=== PATIENT | male | born 1980 | race Caucasian/White ===

== ENCOUNTER 2017-09-20 20:10 | Inpatient (IN) | payer MEDICAID ==
[~2017-09-20] VITALS: Ht 170.2 cm; Wt 84.0 kg
[2017-09-20] MEDS ORDERED: normal saline 1000ML IV soln IVB ONE (20:25)
[2017-09-20] MEDS ORDERED: vancomycin/NS 1 GM ADD-VANTAGE 250 ML IV ONE (20:25)
[2017-09-20 20:55] LABS: BASOPHILS % (AUTO) 0.1 % (0-1); EOSINOPHILS % (AUTO) 0 % (0-6); HEMATOCRIT 42.7 % (42.0-52.0); HEMOGLOBIN 14.3 g/dl (14.0-17.9); LYMPHOCYTES # (AUTO) 1.7 X10'3 (1.1-4.8); LYMPHOCYTES % (AUTO) 10.5 % (21-51); MEAN CORPUSCULAR HEMOGLOBIN 30.2 PG (27.0-31.0); MEAN CORPUSCULAR HGB CONC 33.5 % (33.0-36.5); MEAN PLATELET VOLUME 6.6 FL (7.4-10.4); NEUTROPHILS # (AUTO) 13.2 X10'3 (1.8-7.7); NEUTROPHILS % (AUTO) 83.4 % (42-75); PLATELET COUNT 407 X10'3 (140-440); RED BLOOD COUNT 4.75 X10'6 (4.70-6.10); RED CELL DISTRIBUTION WIDTH 16.3 % (11.5-14.5); WHITE BLOOD COUNT 15.9 X10'3 (4.5-11.0)
[2017-09-20] MEDS ORDERED: temazepam 15mg capsule PO PRN (21:00)
[2017-09-20 21:09] LABS: ALANINE AMINOTRANSFERASE 759 U/L (12-78); ALBUMIN 3.1 G/DL (3.4-5.0); ALBUMIN/GLOBULIN RATIO 0.8 (1.1-1.5); ALKALINE PHOSPHATASE 204 IU/L (46-116); ANION GAP 7 (8-16); ASPARTATE AMINO TRANSFERASE 313 U/L (10-37); BILIRUBIN,TOTAL 1.8 MG/DL (0.1-1.0); BLOOD UREA NITROGEN 17 MG/DL (7-18); BUN/CREATININE RATIO 16.5 (5.4-32.0); CALCIUM 8.6 MG/DL (8.5-10.1); CHLORIDE 98 MMOL/L (99-107); CREATININE 1.03 MG/DL (0.60-1.10); GLUCOSE 159 MG/DL (70-104); POTASSIUM 3.8 MMOL/L (3.5-5.1); SODIUM 135 MMOL/L (135-145); TOTAL CARBON DIOXIDE 29.9 MMOL/L (24-32); TOTAL PROTEIN 6.9 G/DL (6.4-8.2); eGFR 80 ML/MIN
[2017-09-20] MEDS ORDERED: normal saline 1000ML IV soln IV ONE (21:45)
[2017-09-20 22:58] LABS: ANISOCYTOSIS 1+; PLATELET ESTIMATE NORMAL; TOTAL CELLS COUNTED 100
[2017-09-20] MEDS ORDERED: diphenhydrAMINE 50 mg/ml inj IV PRN (23:20)
[2017-09-20] MEDS ORDERED: diphenhydrAMINE 25mg capsule PO PRN (23:20)
[2017-09-20] MEDS ORDERED: magnesium hydroxide 30ml (MOM) UD suspension PO PRN (23:20)
[2017-09-20] MEDS ORDERED: bisacodyl 10mg suppository rectal RC PRN (23:20)
[2017-09-20] MEDS ORDERED: mag hydrox/Alum hydrox/simeth 30ml oral suspension PO PRN (23:20)
[2017-09-20] MEDS ORDERED: acetaminophen 325mg tablet PO PRN ×2 (23:20)
[2017-09-20] MEDS ORDERED: acetaminophen 650mg rectal suppository RC PRN (23:20)
[2017-09-20] MEDS ORDERED: ondansetron/PF 4mg/2ml inj IV PRN (23:20)
[2017-09-20] MEDS ORDERED: metoclopramide 5 mg/ml inj IV PRN (23:20)
[2017-09-20] MEDS ORDERED: HYDROmorphone 1 mg/ml syringe IV PRN ×2 (23:20)
[2017-09-20] MEDS ORDERED: HYDROcodone/acetaminophen 5mg/325mg tablet PO PRN (23:20)
[2017-09-20 23:48] LABS: MAGNESIUM 1.8 MG/DL (1.5-2.4)
[2017-09-20] MEDS: normal saline 1000ml 1,000 ML IV SCH (23:56)
[2017-09-21] MEDS: piperacillin/tazo 4.5gm/100ml 100 ML IV SCH ×3 (00:21→15:55)
[2017-09-21 01:05] VITALS: BP 100/59
[2017-09-21] MEDS: heparin, porcine 5000 units/ml vial SQ SCH ×3 (01:58→15:56)
[2017-09-21 05:26] LABS: BASOPHILS % (AUTO) 0.3 % (0-1); EOSINOPHILS # (AUTO) 0.3 X10'3 (0-0.9); EOSINOPHILS % (AUTO) 2.4 % (0-6); HEMATOCRIT 37.8 % (42.0-52.0); HEMOGLOBIN 12.5 g/dl (14.0-17.9); LYMPHOCYTES # (AUTO) 2.2 X10'3 (1.1-4.8); LYMPHOCYTES % (AUTO) 18.5 % (21-51); MEAN CORPUSCULAR HGB CONC 33.1 % (33.0-36.5); MEAN CORPUSCULAR VOLUME 90.4 FL (78-98); MONOCYTES % (AUTO) 8.4 % (2-12); NEUTROPHILS # (AUTO) 8.3 X10'3 (1.8-7.7); NEUTROPHILS % (AUTO) 70.4 % (42-75); PLATELET COUNT 353 X10'3 (140-440); RED BLOOD COUNT 4.18 X10'6 (4.70-6.10); RED CELL DISTRIBUTION WIDTH 16.2 % (11.5-14.5); WHITE BLOOD COUNT 11.8 X10'3 (4.5-11.0)
[2017-09-21 05:52] LABS: ALANINE AMINOTRANSFERASE 559 U/L (12-78); ALBUMIN 2.5 G/DL (3.4-5.0); ALBUMIN/GLOBULIN RATIO 0.8 (1.1-1.5); ALKALINE PHOSPHATASE 166 IU/L (46-116); ANION GAP 8 (8-16); ASPARTATE AMINO TRANSFERASE 212 U/L (10-37); BILIRUBIN,TOTAL 1.6 MG/DL (0.1-1.0); BLOOD UREA NITROGEN 13 MG/DL (7-18); BUN/CREATININE RATIO 14.3 (5.4-32.0); CHLORIDE 103 MMOL/L (99-107); CREATININE 0.91 MG/DL (0.60-1.10); GLUCOSE 126 MG/DL (70-104); POTASSIUM 3.7 MMOL/L (3.5-5.1); SODIUM 137 MMOL/L (135-145); TOTAL CARBON DIOXIDE 26.2 MMOL/L (24-32); TOTAL PROTEIN 5.8 G/DL (6.4-8.2); eGFR > 90 ML/MIN
[2017-09-21 06:00] VITALS: BP 160/90
[2017-09-21] MEDS ORDERED: pneumococcal 23-VAL P-sac vacc 25 mcg/0.5ml vial IMVAC ONE (06:15)
[2017-09-21] MEDS ORDERED: FLU VACC QS2017-18 36MOS UP/PF 60 MCG/0.5 ML SYRINGE IMVAC ONE (06:15)
[2017-09-21] MEDS: nicotine 21mg patch - 24 hr TD SCH (07:05)
[2017-09-21] MEDS: docusate sod 100mg capsule PO SCH ×2 (07:05→20:05)
[2017-09-21] MEDS: HYDROcodone/acetaminophen 10/325mg tab PO PRN ×4 (07:05→20:10)
[2017-09-21] MEDS: pantoprazole 40mg Tablet.DR PO SCH (07:05)
[2017-09-21] MEDS: naproxen 500mg tablet PO SCH ×2 (07:05→20:04)
[2017-09-21] MEDS ORDERED: vancomycin/NS 1 GM ADD-VANTAGE 250 ML IV SCH (09:00)
[2017-09-21] MEDS: normal saline 1000ml 1,000 ML IV SCH ×2 (09:20→20:05)
[2017-09-21 10:00] VITALS: BP 122/58
[2017-09-21 17:00] VITALS: BP 103/64
[2017-09-21] MEDS: lactobacillus rhamnosus 10,000 MMU CELLS/CAPSULE PO SCH (17:29)
[2017-09-21] MEDS: vancomycin inj 1,250 MG in normal saline 250ml IV soln 250 ML IV SCH (17:29)
[2017-09-21 20:36] LABS: CLARITY,URINE CLEAR (Clear); COLOR,URINE AMBER (Yellow); GLUCOSE, URINE NEGATIVE (Neg); KETONES,URINE NEGATIVE (Neg); LEUKOCYTE ESTERASE ,URINE NEGATIVE (Neg); NITRITES, URINE NEGATIVE (Neg); OCCULT BLOOD,URINE NEGATIVE (Neg); PROTEIN,URINE NEGATIVE (Neg); UROBILINOGEN,URINE >=8.0 E.U/dL (0.2-1.0)
[2017-09-21 20:38] LABS: UA COLLECTION TYPE VOIDED
[2017-09-21 20:42] LABS: URINE AMPHETAMINE SCREEN POSITIVE (Neg); URINE BARBITUATE SCREEN NEGATIVE (Neg); URINE BENZODIAZEPINES SCREEN NEGATIVE (Neg); URINE CANNABINOID SCREEN NEGATIVE (Neg); URINE COCAINE SCREEN NEGATIVE (Neg); URINE METHADONE SCREEN NEGATIVE (Neg); URINE OPIATE SCREEN POSITIVE (Neg); URINE PHENCYCLIDINE SCREEN NEGATIVE (Neg)
[2017-09-21] MEDS: ALPRAZolam 0.25mg tablet PO PRN (21:52)
[2017-09-21 22:00] VITALS: BP 118/71
[2017-09-22] MEDS: piperacillin/tazo 4.5gm/100ml 100 ML IV SCH ×3 (00:18→16:04)
[2017-09-22] MEDS: HYDROcodone/acetaminophen 10/325mg tab PO PRN (00:18)
[2017-09-22] MEDS: heparin, porcine 5000 units/ml vial SQ SCH ×3 (00:18→16:09)
[2017-09-22] MEDS: vancomycin inj 1,250 MG in normal saline 250ml IV soln 250 ML IV SCH ×3 (00:49→17:33)
[2017-09-22 05:00] VITALS: BP 113/68
[2017-09-22] MEDS: normal saline 1000ml 1,000 ML IV SCH ×3 (05:20→20:11)
[2017-09-22] MEDS: pantoprazole 40mg Tablet.DR PO SCH (07:30)
[2017-09-22] MEDS: lactobacillus rhamnosus 10,000 MMU CELLS/CAPSULE PO SCH ×2 (07:30→17:40)
[2017-09-22] MEDS: naproxen 500mg tablet PO SCH ×2 (08:00→20:10)
[2017-09-22] MEDS: docusate sod 100mg capsule PO SCH ×2 (08:00→20:10)
[2017-09-22] MEDS: nicotine 21mg patch - 24 hr TD SCH (08:23)
[2017-09-22 08:30] LABS: BASOPHILS % (AUTO) 0.4 % (0-1); EOSINOPHILS # (AUTO) 0.3 X10'3 (0-0.9); EOSINOPHILS % (AUTO) 3.4 % (0-6); HEMATOCRIT 38.3 % (42.0-52.0); HEMOGLOBIN 12.6 g/dl (14.0-17.9); LYMPHOCYTES # (AUTO) 1.5 X10'3 (1.1-4.8); LYMPHOCYTES % (AUTO) 20.4 % (21-51); MEAN CORPUSCULAR HEMOGLOBIN 30.4 PG (27.0-31.0); MEAN CORPUSCULAR HGB CONC 32.9 % (33.0-36.5); MEAN CORPUSCULAR VOLUME 92.4 FL (78-98); MEAN PLATELET VOLUME 7.3 FL (7.4-10.4); MONOCYTES # (AUTO) 0.7 X10'3 (0-0.9); MONOCYTES % (AUTO) 9.6 % (2-12); NEUTROPHILS # (AUTO) 4.9 X10'3 (1.8-7.7); NEUTROPHILS % (AUTO) 66.2 % (42-75); PLATELET COUNT 308 X10'3 (140-440); RED BLOOD COUNT 4.15 X10'6 (4.70-6.10); RED CELL DISTRIBUTION WIDTH 16.8 % (11.5-14.5); WHITE BLOOD COUNT 7.4 X10'3 (4.5-11.0)
[2017-09-22] MEDS ORDERED: iohexol 300mg/ml 100ml inj. ONE (08:33)
[2017-09-22 08:35] LABS: ALANINE AMINOTRANSFERASE 508 U/L (12-78); ALBUMIN 2.4 G/DL (3.4-5.0); ALBUMIN/GLOBULIN RATIO 0.7 (1.1-1.5); ALKALINE PHOSPHATASE 145 IU/L (46-116); ANION GAP 5 (8-16); ASPARTATE AMINO TRANSFERASE 254 U/L (10-37); BILIRUBIN,TOTAL 1.7 MG/DL (0.1-1.0); BLOOD UREA NITROGEN 13 MG/DL (7-18); BUN/CREATININE RATIO 14.9 (5.4-32.0); CALCIUM 8.2 MG/DL (8.5-10.1); CHLORIDE 109 MMOL/L (99-107); CREATININE 0.87 MG/DL (0.60-1.10); GLUCOSE 89 MG/DL (70-104); POTASSIUM 4.4 MMOL/L (3.5-5.1); SODIUM 141 MMOL/L (135-145); TOTAL CARBON DIOXIDE 27.3 MMOL/L (24-32); TOTAL PROTEIN 5.9 G/DL (6.4-8.2); eGFR > 90 ML/MIN
[2017-09-22] MEDS ORDERED: ALPR2TAB2 PO (09:43)
[2017-09-22 10:00] VITALS: BP 119/79
[2017-09-22] MEDS: ALPRAZolam 0.25mg tablet PO PRN (16:07)
[2017-09-22] MEDS ORDERED: VANCOMYCIN LEVEL IV NR (16:30)
[2017-09-22 18:00] VITALS: BP 119/73
[2017-09-22] MEDS: mineral oil/petrolatum, white cream 113gm jar TP SCH (20:45)
[2017-09-22 22:00] VITALS: BP 92/54
[2017-09-23] MEDS: piperacillin/tazo 4.5gm/100ml 100 ML IV SCH ×3 (00:15→15:39)
[2017-09-23] MEDS: heparin, porcine 5000 units/ml vial SQ SCH ×3 (00:16→15:39)
[2017-09-23] MEDS: vancomycin inj 1,250 MG in normal saline 250ml IV soln 250 ML IV SCH (01:52)
[2017-09-23 05:00] VITALS: BP 92/44
[2017-09-23 06:19] LABS: HBSAG SCREEN Negative (Negative); HEP A AB, IGM Negative (Negative); HEP B CORE AB, IGM Negative (Negative); HEPATITIS C ANTIBODY >11.0 s/co ratio (0.0-0.9)
[2017-09-23 07:26] LABS: BASOPHILS % (AUTO) 0 % (0-1); EOSINOPHILS # (AUTO) 0.2 X10'3 (0-0.9); EOSINOPHILS % (AUTO) 2.9 % (0-6); HEMATOCRIT 38.1 % (42.0-52.0); HEMOGLOBIN 12.5 g/dl (14.0-17.9); LYMPHOCYTES # (AUTO) 1.4 X10'3 (1.1-4.8); LYMPHOCYTES % (AUTO) 23.7 % (21-51); MEAN CORPUSCULAR HEMOGLOBIN 30.2 PG (27.0-31.0); MEAN CORPUSCULAR HGB CONC 32.8 % (33.0-36.5); MEAN CORPUSCULAR VOLUME 92.1 FL (78-98); MEAN PLATELET VOLUME 7.1 FL (7.4-10.4); MONOCYTES # (AUTO) 0.6 X10'3 (0-0.9); NEUTROPHILS # (AUTO) 3.7 X10'3 (1.8-7.7); NEUTROPHILS % (AUTO) 63.4 % (42-75); PLATELET COUNT 312 X10'3 (140-440); RED BLOOD COUNT 4.14 X10'6 (4.70-6.10); RED CELL DISTRIBUTION WIDTH 17.2 % (11.5-14.5); WHITE BLOOD COUNT 5.8 X10'3 (4.5-11.0)
[2017-09-23] MEDS: naproxen 500mg tablet PO SCH ×2 (07:38→21:21)
[2017-09-23] MEDS: HYDROcodone/acetaminophen 10/325mg tab PO PRN ×2 (07:38→15:40)
[2017-09-23] MEDS: nicotine 21mg patch - 24 hr TD SCH (07:39)
[2017-09-23] MEDS: docusate sod 100mg capsule PO SCH ×2 (07:39→21:21)
[2017-09-23] MEDS: lactobacillus rhamnosus 10,000 MMU CELLS/CAPSULE PO SCH ×2 (07:39→16:47)
[2017-09-23] MEDS: pantoprazole 40mg Tablet.DR PO SCH (07:39)
[2017-09-23] MEDS: mineral oil/petrolatum, white cream 113gm jar TP SCH ×2 (07:39→20:00)
[2017-09-23 07:46] LABS: ALANINE AMINOTRANSFERASE 514 U/L (12-78); ALBUMIN 2.2 G/DL (3.4-5.0); ALBUMIN/GLOBULIN RATIO 0.6 (1.1-1.5); ALKALINE PHOSPHATASE 185 IU/L (46-116); ANION GAP 6 (8-16); ASPARTATE AMINO TRANSFERASE 312 U/L (10-37); BILIRUBIN,TOTAL 1.6 MG/DL (0.1-1.0); BLOOD UREA NITROGEN 9 MG/DL (7-18); BUN/CREATININE RATIO 10.3 (5.4-32.0); CALCIUM 8.2 MG/DL (8.5-10.1); CHLORIDE 110 MMOL/L (99-107); CREATININE 0.87 MG/DL (0.60-1.10); GLUCOSE 104 MG/DL (70-104); POTASSIUM 4.3 MMOL/L (3.5-5.1); SODIUM 142 MMOL/L (135-145); TOTAL CARBON DIOXIDE 26.3 MMOL/L (24-32); TOTAL PROTEIN 5.9 G/DL (6.4-8.2); eGFR > 90 ML/MIN
[2017-09-23 10:00] VITALS: BP 130/69
[2017-09-23] MEDS: normal saline 1000ml 1,000 ML IV SCH ×2 (12:24→21:20)
[2017-09-23 18:00] VITALS: BP 115/73
[2017-09-23 22:00] VITALS: BP 93/46
[2017-09-24] MEDS: piperacillin/tazo 4.5gm/100ml 100 ML IV SCH ×4 (00:18→23:19)
[2017-09-24] MEDS: heparin, porcine 5000 units/ml vial SQ SCH ×4 (00:19→23:20)
[2017-09-24 05:00] VITALS: BP 100/52
[2017-09-24 07:02] LABS: BASOPHILS % (AUTO) 0.5 % (0-1); EOSINOPHILS # (AUTO) 0.2 X10'3 (0-0.9); EOSINOPHILS % (AUTO) 4.2 % (0-6); HEMATOCRIT 38.9 % (42.0-52.0); HEMOGLOBIN 12.8 g/dl (14.0-17.9); LYMPHOCYTES # (AUTO) 1.5 X10'3 (1.1-4.8); LYMPHOCYTES % (AUTO) 28.3 % (21-51); MEAN CORPUSCULAR HEMOGLOBIN 30.1 PG (27.0-31.0); MEAN CORPUSCULAR HGB CONC 32.8 % (33.0-36.5); MEAN CORPUSCULAR VOLUME 91.8 FL (78-98); MEAN PLATELET VOLUME 7.1 FL (7.4-10.4); MONOCYTES # (AUTO) 0.6 X10'3 (0-0.9); MONOCYTES % (AUTO) 11.2 % (2-12); NEUTROPHILS # (AUTO) 2.9 X10'3 (1.8-7.7); NEUTROPHILS % (AUTO) 55.8 % (42-75); PLATELET COUNT 356 X10'3 (140-440); RED BLOOD COUNT 4.24 X10'6 (4.70-6.10); RED CELL DISTRIBUTION WIDTH 17.2 % (11.5-14.5); WHITE BLOOD COUNT 5.1 X10'3 (4.5-11.0)
[2017-09-24 07:40] LABS: ALANINE AMINOTRANSFERASE 541 U/L (12-78); ALBUMIN 2.2 G/DL (3.4-5.0); ALBUMIN/GLOBULIN RATIO 0.6 (1.1-1.5); ALKALINE PHOSPHATASE 195 IU/L (46-116); ANION GAP 6 (8-16); ASPARTATE AMINO TRANSFERASE 342 U/L (10-37); BILIRUBIN,TOTAL 1.6 MG/DL (0.1-1.0); BLOOD UREA NITROGEN 12 MG/DL (7-18); BUN/CREATININE RATIO 13.3 (5.4-32.0); CALCIUM 7.9 MG/DL (8.5-10.1); CHLORIDE 108 MMOL/L (99-107); GLUCOSE 110 MG/DL (70-104); POTASSIUM 3.9 MMOL/L (3.5-5.1); SODIUM 141 MMOL/L (135-145); TOTAL CARBON DIOXIDE 27.5 MMOL/L (24-32); eGFR > 90 ML/MIN
[2017-09-24] MEDS: pantoprazole 40mg Tablet.DR PO SCH (08:23)
[2017-09-24] MEDS: lactobacillus rhamnosus 10,000 MMU CELLS/CAPSULE PO SCH (08:23)
[2017-09-24] MEDS: HYDROcodone/acetaminophen 10/325mg tab PO PRN ×2 (08:23→20:08)
[2017-09-24] MEDS: naproxen 500mg tablet PO SCH ×2 (08:24→20:07)
[2017-09-24] MEDS: mineral oil/petrolatum, white cream 113gm jar TP SCH ×2 (08:24→20:10)
[2017-09-24] MEDS: nicotine 21mg patch - 24 hr TD SCH (08:24)
[2017-09-24] MEDS: docusate sod 100mg capsule PO SCH ×2 (08:24→20:08)
[2017-09-24] MEDS ORDERED: VANCOMYCIN LEVEL IV ONE (08:30)
[2017-09-24 10:00] VITALS: BP 115/74
[2017-09-24] MEDS: normal saline 1000ml 1,000 ML IV SCH (11:49)
[2017-09-24 18:00] VITALS: BP 132/84
[2017-09-24 22:00] VITALS: BP 117/74
[2017-09-25 06:00] VITALS: BP 112/61
[2017-09-25] MEDS: normal saline 1000ml 1,000 ML IV SCH (07:32)
[2017-09-25] MEDS: docusate sod 100mg capsule PO SCH ×2 (07:32→19:26)
[2017-09-25] MEDS: pantoprazole 40mg Tablet.DR PO SCH (07:32)
[2017-09-25] MEDS: LACTOBACILLUS RHAMNOSUS GG 15 billion unit sprinkle caps PO SCH (07:32)
[2017-09-25] MEDS: piperacillin/tazo 4.5gm/100ml 100 ML IV SCH ×2 (07:32→15:05)
[2017-09-25] MEDS: HYDROcodone/acetaminophen 10/325mg tab PO PRN ×3 (07:33→19:23)
[2017-09-25] MEDS: nicotine 21mg patch - 24 hr TD SCH (07:33)
[2017-09-25] MEDS: heparin, porcine 5000 units/ml vial SQ SCH ×2 (07:33→15:05)
[2017-09-25] MEDS: naproxen 500mg tablet PO SCH ×2 (07:33→19:25)
[2017-09-25] MEDS: mineral oil/petrolatum, white cream 113gm jar TP SCH ×2 (07:34→19:25)
[2017-09-25] MEDS ORDERED: VANCOMYCIN LEVEL IV ONE (08:30)
[2017-09-25 09:09] LABS: BASOPHILS % (AUTO) 0.3 % (0-1); EOSINOPHILS # (AUTO) 0.2 X10'3 (0-0.9); EOSINOPHILS % (AUTO) 3.3 % (0-6); HEMATOCRIT 39.9 % (42.0-52.0); HEMOGLOBIN 12.9 g/dl (14.0-17.9); LYMPHOCYTES # (AUTO) 1.5 X10'3 (1.1-4.8); LYMPHOCYTES % (AUTO) 29.3 % (21-51); MEAN CORPUSCULAR HGB CONC 32.3 % (33.0-36.5); MEAN CORPUSCULAR VOLUME 92.8 FL (78-98); MEAN PLATELET VOLUME 6.8 FL (7.4-10.4); MONOCYTES # (AUTO) 0.5 X10'3 (0-0.9); NEUTROPHILS % (AUTO) 58.1 % (42-75); PLATELET COUNT 382 X10'3 (140-440); RED CELL DISTRIBUTION WIDTH 17.2 % (11.5-14.5); WHITE BLOOD COUNT 5.1 X10'3 (4.5-11.0)
[2017-09-25 09:24] LABS: ALANINE AMINOTRANSFERASE 574 U/L (12-78); ALBUMIN 2.4 G/DL (3.4-5.0); ALBUMIN/GLOBULIN RATIO 0.6 (1.1-1.5); ALKALINE PHOSPHATASE 211 IU/L (46-116); ANION GAP 8 (8-16); ASPARTATE AMINO TRANSFERASE 316 U/L (10-37); BILIRUBIN,TOTAL 1.7 MG/DL (0.1-1.0); BLOOD UREA NITROGEN 8 MG/DL (7-18); BUN/CREATININE RATIO 8.8 (5.4-32.0); CALCIUM 8.1 MG/DL (8.5-10.1); CHLORIDE 106 MMOL/L (99-107); CREATININE 0.91 MG/DL (0.60-1.10); GLUCOSE 152 MG/DL (70-104); POTASSIUM 3.9 MMOL/L (3.5-5.1); SODIUM 140 MMOL/L (135-145); TOTAL CARBON DIOXIDE 25.7 MMOL/L (24-32); TOTAL PROTEIN 6.3 G/DL (6.4-8.2); eGFR > 90 ML/MIN
[2017-09-25 09:33] LABS: % IRON SATURATION 43 % (11-46); IRON 126 UG/DL (53-167); TOTAL IRON BINDING CAPACITY 293 UG/DL (259-388)
[2017-09-25 10:30] VITALS: BP 114/66
[2017-09-25 18:00] VITALS: BP 135/66
[2017-09-25 22:00] VITALS: BP 129/67
[2017-09-26] MEDS: heparin, porcine 5000 units/ml vial SQ SCH ×2 (00:14→08:19)
[2017-09-26] MEDS: piperacillin/tazo 4.5gm/100ml 100 ML IV SCH ×2 (00:15→08:18)
[2017-09-26 06:00] VITALS: BP 115/70
[2017-09-26 06:17] LABS: BASOPHILS % (AUTO) 0.5 % (0-1); EOSINOPHILS # (AUTO) 0.2 X10'3 (0-0.9); EOSINOPHILS % (AUTO) 3.3 % (0-6); HEMATOCRIT 39.7 % (42.0-52.0); HEMOGLOBIN 13.3 g/dl (14.0-17.9); LYMPHOCYTES # (AUTO) 2.2 X10'3 (1.1-4.8); LYMPHOCYTES % (AUTO) 36.8 % (21-51); MEAN CORPUSCULAR HEMOGLOBIN 30.5 PG (27.0-31.0); MEAN CORPUSCULAR HGB CONC 33.5 % (33.0-36.5); MEAN CORPUSCULAR VOLUME 90.9 FL (78-98); MONOCYTES # (AUTO) 0.6 X10'3 (0-0.9); MONOCYTES % (AUTO) 10.4 % (2-12); NEUTROPHILS # (AUTO) 2.9 X10'3 (1.8-7.7); PLATELET COUNT 355 X10'3 (140-440); RED BLOOD COUNT 4.37 X10'6 (4.70-6.10); RED CELL DISTRIBUTION WIDTH 16.9 % (11.5-14.5); WHITE BLOOD COUNT 5.9 X10'3 (4.5-11.0)
[2017-09-26 06:45] LABS: ALANINE AMINOTRANSFERASE 562 U/L (12-78); ALBUMIN 2.5 G/DL (3.4-5.0); ALBUMIN/GLOBULIN RATIO 0.6 (1.1-1.5); ALKALINE PHOSPHATASE 217 IU/L (46-116); ANION GAP 7 (8-16); ASPARTATE AMINO TRANSFERASE 299 U/L (10-37); BILIRUBIN,TOTAL 1.3 MG/DL (0.1-1.0); BLOOD UREA NITROGEN 11 MG/DL (7-18); BUN/CREATININE RATIO 11.6 (5.4-32.0); CALCIUM 8.1 MG/DL (8.5-10.1); CHLORIDE 108 MMOL/L (99-107); CREATININE 0.95 MG/DL (0.60-1.10); GLUCOSE 83 MG/DL (70-104); POTASSIUM 4.3 MMOL/L (3.5-5.1); SODIUM 143 MMOL/L (135-145); TOTAL CARBON DIOXIDE 27.9 MMOL/L (24-32); TOTAL PROTEIN 6.6 G/DL (6.4-8.2); eGFR 88 ML/MIN
[2017-09-26] MEDS: normal saline 1000ml 1,000 ML IV SCH ×3 (06:52→10:36)
[2017-09-26 07:11] LABS: IMMUNOGLOBULIN M, QN, SERUM 254 mg/dL (20-172)
[2017-09-26] MEDS: naproxen 500mg tablet PO SCH (08:17)
[2017-09-26] MEDS: docusate sod 100mg capsule PO SCH (08:17)
[2017-09-26] MEDS: LACTOBACILLUS RHAMNOSUS GG 15 billion unit sprinkle caps PO SCH (08:17)
[2017-09-26] MEDS: HYDROcodone/acetaminophen 10/325mg tab PO PRN (08:18)
[2017-09-26] MEDS: nicotine 21mg patch - 24 hr TD SCH (08:18)
[2017-09-26] MEDS: mineral oil/petrolatum, white cream 113gm jar TP SCH (08:19)
[2017-09-26] MEDS: pantoprazole 40mg Tablet.DR PO SCH (08:45)
[2017-09-26] MEDS ORDERED: CLIN-5 PO (10:41)
[2017-09-26 11:00] VITALS: BP 135/86
[2017-09-26 13:19] LABS: AFP,SERUM, TUMOR MARKER 3.4 ng/mL (0.0-8.3)
[2017-09-26 15:14] LABS: HBSAG SCREEN Negative (Negative)
[2017-09-26 17:10] LABS: ANTINUCLEAR ANTIBODIES Negative (Negative)
[2017-09-27 15:07] LABS: CERULOPLASMIN 29.9 mg/dL (16.0-31.0)
== END 2017-09-26 12:35 | disposition home or self-care (01) | DRG 383 ==
LOC: ER 20:11 → ED HOLD 23:20 → ORTHO 4S 09-21 01:04
PROVIDERS: ADMIT Family Medicine; ATTEND Family Medicine
PROC: 3E0234Z Introduction of Serum, Toxoid and Vaccine into Muscle, Percutaneous Approach (ICD-10-PCS; principal; 2017-09-21)
DX: L03.116 Cellulitis of left lower limb (principal); B17.10 Acute hepatitis C without hepatic coma; I82.812 Embolism and thrombosis of superficial veins of left lower extremity; F12.90 Cannabis use, unspecified, uncomplicated; F11.90 Opioid use, unspecified, uncomplicated; E86.1 Hypovolemia; F17.210 Nicotine dependence, cigarettes, uncomplicated; F15.10 Other stimulant abuse, uncomplicated; F41.9 Anxiety disorder, unspecified; Z23 Encounter for immunization; Z88.0 Allergy status to penicillin; Z71.51 Drug abuse counseling and surveillance of drug abuser
CPT/HCPCS: 36415; 73701; 76700; 80053; 80074; 80202; 80305; 81003; 82103; 82390; 82784; 83540; 83550; 83605; 83735; 83880; 85025; 85610; 86038; 87040; 87070; 87340; 93971; 96365; 96366; 99285; J1644; J2270; J2543; J3370; J7030; Q9967

== ENCOUNTER 2018-04-14 13:34 | Emergency (ER) | payer MEDICAID ==
[~2018-04-14] VITALS: Ht 584.7 cm; Wt 81.8 kg
[~2018-04-14 13:34] MED LIST: ALPR2TAB2 PO; CLIN-5 PO
[2018-04-14] MEDS ORDERED: bacitracin 15gm ointment TP ONE (14:50)
[2018-04-14] MEDS ORDERED: LIDOcaine 1.5% w/epinephrine 1:200,000 5ml ampul IJ ONE (14:50)
[2018-04-14] MEDS ORDERED: DOXYCYCLINE 100MG CAPSULE PO STA (14:57)
[2018-04-14] MEDS ORDERED: ondansetron 4mg rapidly disintigrating tab PO ONE (15:00)
[2018-04-14] MEDS ORDERED: cephalexin 500mg capsule PO ONE (15:00)
[2018-04-14] MEDS ORDERED: ketorolac trometh inj. 60 MG/2 ML VIAL IM ONE (15:15)
[2018-04-14] MEDS ORDERED: DOXY100C43 PO (15:21)
[2018-04-14] MEDS ORDERED: CEPH750C9 PO (15:21)
[2018-04-14 16:05] VITALS: BP 109/65
== END 2018-04-14 16:07 | disposition home or self-care (01) ==
LOC: ER 13:34
DX: L02.416 Cutaneous abscess of left lower limb (principal); L03.116 Cellulitis of left lower limb; F12.90 Cannabis use, unspecified, uncomplicated; F15.90 Other stimulant use, unspecified, uncomplicated; F11.90 Opioid use, unspecified, uncomplicated; Z79.899 Other long term (current) drug therapy
CPT/HCPCS: 10060; 96372; 99283; A6266; A6449; J1885; J3490

== ENCOUNTER 2018-07-05 18:55 | Emergency (ER) | payer MEDICAID ==
[~2018-07-05] VITALS: Ht 170.2 cm; Wt 77.0 kg
[~2018-07-05 18:55] MED LIST changes: +CEPH750C9 PO
[2018-07-05 21:24] LABS: BASOPHILS % (AUTO) 0.6 % (0-1); EOSINOPHILS # (AUTO) 0.2 X10'3 (0-0.9); EOSINOPHILS % (AUTO) 2.3 % (0-6); HEMOGLOBIN 14.1 g/dl (14.0-17.9); LYMPHOCYTES # (AUTO) 1.5 X10'3 (1.1-4.8); LYMPHOCYTES % (AUTO) 20.8 % (21-51); MEAN CORPUSCULAR HEMOGLOBIN 31.5 PG (27.0-31.0); MEAN CORPUSCULAR HGB CONC 34.3 % (33.0-36.5); MEAN CORPUSCULAR VOLUME 91.9 FL (78-98); MEAN PLATELET VOLUME 7.1 FL (7.4-10.4); MONOCYTES # (AUTO) 0.7 X10'3 (0-0.9); MONOCYTES % (AUTO) 9.6 % (2-12); NEUTROPHILS # (AUTO) 4.6 X10'3 (1.8-7.7); NEUTROPHILS % (AUTO) 66.7 % (42-75); PLATELET COUNT 328 X10'3 (140-440); RED BLOOD COUNT 4.46 X10'6 (4.70-6.10); RED CELL DISTRIBUTION WIDTH 12.7 % (11.5-14.5)
[2018-07-05 21:39] LABS: ALANINE AMINOTRANSFERASE 42 U/L (12-78); ALBUMIN 3.1 G/DL (3.4-5.0); ALBUMIN/GLOBULIN RATIO 0.7 (1.1-1.5); ALKALINE PHOSPHATASE 64 IU/L (46-116); ANION GAP 5 (8-16); ASPARTATE AMINO TRANSFERASE 25 U/L (10-37); BILIRUBIN,TOTAL 0.3 MG/DL (0.1-1.0); BLOOD UREA NITROGEN 15 MG/DL (7-18); BUN/CREATININE RATIO 16.5 (5.4-32.0); CALCIUM 8.3 MG/DL (8.5-10.1); CHLORIDE 102 MMOL/L (99-107); CREATININE 0.91 MG/DL (0.60-1.10); POTASSIUM 3.9 MMOL/L (3.5-5.1); SODIUM 137 MMOL/L (135-145); TOTAL CARBON DIOXIDE 29.9 MMOL/L (24-32); TOTAL PROTEIN 7.3 G/DL (6.4-8.2); eGFR > 90 ML/MIN
[2018-07-05 21:43] LABS: GLUCOSE 83 MG/DL (70-104)
[2018-07-05] MEDS ORDERED: sulfamethoxazole/trimethoprim DS (800/160mg) tablet PO ONE (21:50)
[2018-07-05] MEDS ORDERED: doxycycline hyclate 100mg tablet.DR PO STA (21:51)
[2018-07-05] MEDS ORDERED: DOXYCYCLINE 100MG CAPSULE PO ONE (21:55)
[2018-07-05] MEDS ORDERED: LIDOcaine 1.5% w/epinephrine 1:200,000 5ml ampul IJ ONE (22:15)
[2018-07-05 22:29] VITALS: BP 121/67
[2018-07-05] MEDS ORDERED: DOXY-200 PO (22:40)
[2018-07-05] MEDS ORDERED: SULF1TAB49 PO (22:40)
== END 2018-07-05 23:08 | disposition home or self-care (01) ==
LOC: ER 18:56
DX: L02.416 Cutaneous abscess of left lower limb (principal); G89.29 Other chronic pain; F12.90 Cannabis use, unspecified, uncomplicated; F15.90 Other stimulant use, unspecified, uncomplicated; F11.90 Opioid use, unspecified, uncomplicated
CPT/HCPCS: 10060; 36415; 80053; 85025; 99284

== ENCOUNTER 2018-09-19 | Emergency (ER) | payer MEDICAID ==
[~2018-09-19] VITALS: Ht 170.2 cm; Wt 91.3 kg
[2018-09-19 00:13] VITALS: BP 124/70
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
[2018-09-19] MEDS ORDERED: CefTRIAXone 1000mg IM Kit (w/lidocaine diluent) IM ONE (00:45)
[2018-09-19] MEDS ORDERED: sulfamethoxazole/trimethoprim DS (800/160mg) tablet PO ONE (00:45)
[2018-09-19] MEDS ORDERED: SULF1TAB49 PO (00:46)
== END 2018-09-19 01:23 | disposition home or self-care (01) ==
LOC: ER 00:01
DX: L02.416 Cutaneous abscess of left lower limb (principal); L02.415 Cutaneous abscess of right lower limb; L03.116 Cellulitis of left lower limb; L03.115 Cellulitis of right lower limb; G89.29 Other chronic pain; F12.90 Cannabis use, unspecified, uncomplicated; F15.90 Other stimulant use, unspecified, uncomplicated; F11.90 Opioid use, unspecified, uncomplicated; Z88.0 Allergy status to penicillin; Z98.890 Other specified postprocedural states
CPT/HCPCS: 96372; 99283; J0696

== ENCOUNTER 2018-12-01 01:37 | Emergency (ER) | payer MEDICAID ==
[~2018-12-01] VITALS: Ht 170.2 cm; Wt 89.7 kg
[2018-12-01 01:43] VITALS: BP 115/50
[2018-12-01] MEDS ORDERED: azithromycin 250mg tablet PO ONE (02:00)
[2018-12-01] MEDS ORDERED: CefTRIAXone 1000mg IM Kit (w/lidocaine diluent) IM ONE (02:00)
[2018-12-01 02:15] LABS: CLARITY,URINE SLIGHTLY CLOUDY (Clear); COLOR,URINE YELLOW (Yellow); GLUCOSE, URINE NEGATIVE (Neg); KETONES,URINE NEGATIVE (Neg); LEUKOCYTE ESTERASE ,URINE MODERATE (Neg); NITRITES, URINE NEGATIVE (Neg); OCCULT BLOOD,URINE TRACE-INTACT (Neg); PH,URINE 5.5 (4.8-8.0); PROTEIN,URINE NEGATIVE (Neg); UROBILINOGEN,URINE 0.2 E.U/dL (0.2-1.0)
[2018-12-01 02:18] LABS: UA COLLECTION TYPE VOIDED
[2018-12-01 02:24] LABS: RBC,URINE 0-2 /HPF (0-2); SQUAMOUS EPITHELIAL CELL,UR MODERATE /LPF (FEW); TRICHOMONAS,URINE FEW /HPF (NEGATIVE); WBC CLUMPS,URINE FEW /HPF (NEGATIVE); WBC,URINE TNTC /HPF (0-4)
[2018-12-01 02:25] LABS: BACTERIA,URINE FEW /HPF (Neg); MUCUS STRANDS FEW /LPF (Neg)
== END 2018-12-01 02:40 | disposition home or self-care (01) ==
LOC: ER 01:37
DX: R30.0 Dysuria (principal); Z20.2 Contact with and (suspected) exposure to infections with a predominantly sexual mode of transmission; G89.29 Other chronic pain; F12.90 Cannabis use, unspecified, uncomplicated; F15.90 Other stimulant use, unspecified, uncomplicated; F11.90 Opioid use, unspecified, uncomplicated; Z88.0 Allergy status to penicillin; Z79.899 Other long term (current) drug therapy; Z98.890 Other specified postprocedural states
CPT/HCPCS: 36415; 81001; 87088; 87491; 87591; 96372; 99283; J0696

== ENCOUNTER 2019-06-08 10:50 | Emergency (ER) | payer MEDICAID, OTHER ==
[~2019-06-08] VITALS: Ht 170.2 cm; Wt 88.0 kg
[2019-06-08] MEDS ORDERED: acetaminophen 325mg tablet PO STA (11:36)
[2019-06-08] MEDS ORDERED: normal saline 1000ML IV soln IV ONE (11:40)
[2019-06-08] MEDS ORDERED: clindamycin 600mg/D5W 50ml 50 ML IV ONE (11:45)
[2019-06-08 12:15] LABS: BASOPHILS % (AUTO) 0.5 % (0-1); EOSINOPHILS # (AUTO) 0.1 X10'3 (0-0.9); EOSINOPHILS % (AUTO) 1.1 % (0-6); HEMATOCRIT 39.9 % (42.0-52.0); LYMPHOCYTES % (AUTO) 26.1 % (21-51); MEAN CORPUSCULAR HEMOGLOBIN 31.8 PG (27.0-31.0); MEAN CORPUSCULAR HGB CONC 35.1 g/dL (33.0-36.5); MEAN CORPUSCULAR VOLUME 90.8 FL (78-98); MEAN PLATELET VOLUME 7.5 FL (7.4-10.4); MONOCYTES # (AUTO) 0.7 X10'3 (0-0.9); MONOCYTES % (AUTO) 9.7 % (2-12); NEUTROPHILS # (AUTO) 4.7 X10'3 (1.8-7.7); NEUTROPHILS % (AUTO) 62.6 % (42-75); PLATELET COUNT 202 X10'3 (140-440); RED CELL DISTRIBUTION WIDTH 14.6 % (11.5-14.5); WHITE BLOOD COUNT 7.5 X10'3 (4.5-11.0)
[2019-06-08 12:23] LABS: PARTIAL THROMBOPLASTIN TIME 30 SECONDS (22-32)
[2019-06-08 12:37] LABS: ALANINE AMINOTRANSFERASE 180 U/L (12-78); ALBUMIN 3.6 G/DL (3.4-5.0); ALBUMIN/GLOBULIN RATIO 0.9 (1.1-1.5); ALKALINE PHOSPHATASE 56 IU/L (46-116); ANION GAP 10 (8-16); ASPARTATE AMINO TRANSFERASE 88 U/L (10-37); BLOOD UREA NITROGEN 24 MG/DL (7-18); BUN/CREATININE RATIO 21.8 (5.4-32.0); CALCIUM 8.6 MG/DL (8.5-10.1); CHLORIDE 103 MMOL/L (99-107); GLUCOSE 80 MG/DL (70-104); MAGNESIUM 1.7 MG/DL (1.5-2.4); POTASSIUM 3.6 MMOL/L (3.5-5.1); SODIUM 138 MMOL/L (135-145); TOTAL CARBON DIOXIDE 25.2 MMOL/L (24-32); TOTAL PROTEIN 7.4 G/DL (6.4-8.2); eGFR 74 ML/MIN
--- NOTE | 2019-06-08 12:45 | NUR ---
sheriff sgt howard at the bedside to remove the pt's ankle bracelet
--- NOTE | 2019-06-08 13:00 | NUR ---
PT OUT TO MRI PER ORDERS NOW
--- NOTE | 2019-06-08 13:54 | NUR ---
Pt. back to room from MRI.
[2019-06-08] MEDS ORDERED: CEPH500C5 PO (14:24)
[2019-06-08 15:25] VITALS: BP 155/92
== END 2019-06-08 15:30 | disposition home or self-care (01) ==
LOC: ER 10:50
DX: L03.116 Cellulitis of left lower limb (principal); G89.29 Other chronic pain; F12.90 Cannabis use, unspecified, uncomplicated; F15.90 Other stimulant use, unspecified, uncomplicated; F11.90 Opioid use, unspecified, uncomplicated; R00.0 Tachycardia, unspecified; M54.5 Low back pain; Z98.890 Other specified postprocedural states; Z88.0 Allergy status to penicillin
CPT/HCPCS: 36415; 71045; 72146; 72148; 80053; 83605; 83735; 84145; 85025; 85610; 85730; 87040; 93005; 93971; 96365; 99284; J7030; J3490

== ENCOUNTER 2019-09-22 19:10 | Emergency (ER) | payer MEDICAID ==
[~2019-09-22] VITALS: Ht 170.2 cm; Wt 86.4 kg
--- NOTE | 2019-09-22 19:29 | NUR ---
Patient at bedside. Patient acknowledges recent meth use within the last 3 days. He has mild tachycardia in relation to.
--- NOTE | 2019-09-22 19:46 | NUR ---
Patient acknowledges problems with blood clots in his legs. Hence the need for change in ADAM level.
[2019-09-22] MEDS ORDERED: ibuprofen tablet 400 MG TABLET PO ONE (20:20)
[2019-09-22] MEDS ORDERED: ondansetron 4mg rapidly disintigrating tab PO ONE (20:20)
[2019-09-22] MEDS ORDERED: sulfamethoxazole/trimethoprim DS (800/160mg) tablet PO ONE (20:20)
[2019-09-23] MEDS ORDERED: SULF1TAB49 PO (00:54)
[2019-09-23] MEDS ORDERED: enoxaparin 100mg/ml syringe SUBCUT ONE (00:55)
[2019-09-23 01:15] VITALS: BP 121/69
== END 2019-09-23 01:16 | disposition home or self-care (01) ==
LOC: ER 19:12
DX: L03.116 Cellulitis of left lower limb (principal); M54.9 Dorsalgia, unspecified; G89.29 Other chronic pain; F12.90 Cannabis use, unspecified, uncomplicated; F15.90 Other stimulant use, unspecified, uncomplicated; F11.90 Opioid use, unspecified, uncomplicated; F10.99 Alcohol use, unspecified with unspecified alcohol-induced disorder; Z86.718 Personal history of other venous thrombosis and embolism; Z86.19 Personal history of other infectious and parasitic diseases; Z98.890 Other specified postprocedural states; Z79.899 Other long term (current) drug therapy; Y90.9 Presence of alcohol in blood, level not specified
CPT/HCPCS: 71045; 93005; 96372; 99284; J1650

== ENCOUNTER 2019-10-01 00:44 | Emergency (ER) | payer MEDICAID ==
[~2019-10-01] VITALS: Ht 170.2 cm; Wt 86.4 kg
[~2019-10-01 00:44] MED LIST changes: +SULF1TAB49 PO
[2019-10-01] MEDS ORDERED: normal saline 1000ML IV soln IVB ONE (02:45)
[2019-10-01 03:31] LABS: EOSINOPHILS # (AUTO) 0.1 X10'3 (0-0.9); HEMATOCRIT 39.5 % (42.0-52.0); LYMPHOCYTES # (AUTO) 1.7 X10'3 (1.1-4.8); MONOCYTES # (AUTO) 0.5 X10'3 (0-0.9); NEUTROPHILS # (AUTO) 3.9 X10'3 (1.8-7.7); WHITE BLOOD COUNT 6.3 X10'3 (4.5-11.0)
[2019-10-01 03:33] LABS: BASOPHILS % (AUTO) 0.7 % (0-1); EOSINOPHILS % (AUTO) 1.9 % (0-6); HEMOGLOBIN 13.6 g/dl (14.0-17.9); LYMPHOCYTES % (AUTO) 26.8 % (21-51); MEAN CORPUSCULAR HEMOGLOBIN 31.9 PG (27.0-31.0); MEAN CORPUSCULAR HGB CONC 34.3 g/dL (33.0-36.5); MEAN PLATELET VOLUME 7.5 FL (7.4-10.4); MONOCYTES % (AUTO) 8.1 % (2-12); NEUTROPHILS % (AUTO) 62.5 % (42-75); PLATELET COUNT 197 X10'3 (140-440); RED BLOOD COUNT 4.25 X10'6 (4.70-6.10); RED CELL DISTRIBUTION WIDTH 14.7 % (11.5-14.5)
[2019-10-01 03:54] LABS: CLARITY,URINE CLEAR (Clear); COLOR,URINE YELLOW (Yellow); GLUCOSE, URINE NEGATIVE (Neg); KETONES,URINE NEGATIVE (Neg); LEUKOCYTE ESTERASE ,URINE NEGATIVE (Neg); NITRITES, URINE NEGATIVE (Neg); OCCULT BLOOD,URINE NEGATIVE (Neg); PH,URINE 6.5 (4.8-8.0); PROTEIN,URINE NEGATIVE (Neg)
[2019-10-01 03:55] LABS: UA COLLECTION TYPE VOIDED
[2019-10-01 03:56] LABS: ALANINE AMINOTRANSFERASE 63 U/L (12-78); ALBUMIN 3.2 G/DL (3.4-5.0); ALBUMIN/GLOBULIN RATIO 0.8 (1.1-1.5); ALKALINE PHOSPHATASE 61 IU/L (46-116); ANION GAP 9 (8-16); ASPARTATE AMINO TRANSFERASE 54 U/L (10-37); BILIRUBIN,TOTAL 0.4 MG/DL (0.1-1.0); BLOOD UREA NITROGEN 13 MG/DL (7-18); BUN/CREATININE RATIO 19.1 (5.4-32.0); CALCIUM 8.5 MG/DL (8.5-10.1); CHLORIDE 101 MMOL/L (99-107); CREATININE 0.68 MG/DL (0.60-1.10); GLUCOSE 95 MG/DL (70-104); SODIUM 137 MMOL/L (135-145); TOTAL CARBON DIOXIDE 27.4 MMOL/L (24-32); eGFR > 90 ML/MIN
[2019-10-01 03:59] LABS: POTASSIUM 4.1 MMOL/L (3.5-5.1)
[2019-10-01] MEDS ORDERED: furosemide 10 MG/1 ML 10ml inj IV ONE (04:30)
[2019-10-01] MEDS ORDERED: potassium Cl 20 mEq SR tablet PO STA (04:30)
[2019-10-01] MEDS ORDERED: furosemide 20MG tablet PO ONE (04:30)
[2019-10-01] MEDS ORDERED: POTA20PA40 PO (04:53)
[2019-10-01] MEDS ORDERED: FURO-150 PO (04:53)
[2019-10-01 05:57] VITALS: BP 127/62
== END 2019-10-01 06:03 | disposition home or self-care (01) ==
LOC: ER 00:45
DX: R60.0 Localized edema (principal); F12.90 Cannabis use, unspecified, uncomplicated; F15.90 Other stimulant use, unspecified, uncomplicated; F11.90 Opioid use, unspecified, uncomplicated; G89.29 Other chronic pain; Z86.718 Personal history of other venous thrombosis and embolism; Z86.19 Personal history of other infectious and parasitic diseases; Z98.890 Other specified postprocedural states
CPT/HCPCS: 80053; 81003; 85025; 96374; 99283; J1940

== ENCOUNTER 2019-12-23 00:30 | Emergency (ER) | payer MEDICAID, OTHER ==
[~2019-12-23] VITALS: Ht 170.2 cm; Wt 75.0 kg
[~2019-12-23 00:30] MED LIST changes: +FURO-150 PO; +POTA20PA40 PO; -SULF1TAB49 PO
[2019-12-23] MEDS ORDERED: DOXYCYCLINE 100MG CAPSULE PO STA (00:53)
[2019-12-23] MEDS ORDERED: ondansetron 4mg rapidly disintigrating tab PO ONE (00:55)
[2019-12-23] MEDS ORDERED: cephalexin 250mg capsule PO ONE (00:55)
[2019-12-23] MEDS ORDERED: acetaminophen 325mg tablet PO STA (01:22)
[2019-12-23 02:02] LABS: BASOPHILS % (AUTO) 0.4 % (0-1); EOSINOPHILS % (AUTO) 0 % (0-6); HEMATOCRIT 47.6 % (42.0-52.0); HEMOGLOBIN 16.2 g/dl (14.0-17.9); LYMPHOCYTES # (AUTO) 1.5 X10'3 (1.1-4.8); LYMPHOCYTES % (AUTO) 13.1 % (21-51); MEAN CORPUSCULAR HEMOGLOBIN 31.3 PG (27.0-31.0); MEAN CORPUSCULAR HGB CONC 34.1 g/dL (33.0-36.5); MEAN PLATELET VOLUME 7.4 FL (7.4-10.4); MONOCYTES # (AUTO) 0.9 X10'3 (0-0.9); MONOCYTES % (AUTO) 7.8 % (2-12); NEUTROPHILS % (AUTO) 78.7 % (42-75); PLATELET COUNT 268 X10'3 (140-440); RED BLOOD COUNT 5.18 X10'6 (4.70-6.10); RED CELL DISTRIBUTION WIDTH 13.7 % (11.5-14.5); WHITE BLOOD COUNT 11.5 X10'3 (4.5-11.0)
[2019-12-23 02:08] LABS: PARTIAL THROMBOPLASTIN TIME 35 SECONDS (22-32)
[2019-12-23 02:10] LABS: ALANINE AMINOTRANSFERASE 381 U/L (12-78); ALBUMIN 3.3 G/DL (3.4-5.0); ALBUMIN/GLOBULIN RATIO 0.8 (1.1-1.5); ALKALINE PHOSPHATASE 66 IU/L (46-116); ANION GAP 7 (8-16); ASPARTATE AMINO TRANSFERASE 137 U/L (10-37); BILIRUBIN,TOTAL 0.6 MG/DL (0.1-1.0); BLOOD UREA NITROGEN 17 MG/DL (7-18); BUN/CREATININE RATIO 18.5 (5.4-32.0); CALCIUM 8.3 MG/DL (8.5-10.1); CHLORIDE 98 MMOL/L (99-107); CREATININE 0.92 MG/DL (0.60-1.10); GLUCOSE 97 MG/DL (70-104); MAGNESIUM 1.7 MG/DL (1.5-2.4); SODIUM 132 MMOL/L (135-145); TOTAL CARBON DIOXIDE 26.9 MMOL/L (24-32); TOTAL PROTEIN 7.7 G/DL (6.4-8.2); eGFR > 90 ML/MIN
[2019-12-23] MEDS ORDERED: CEPH250T PO (02:46)
[2019-12-23] MEDS ORDERED: DOXY100C76 PO (02:46)
[2019-12-23 03:10] VITALS: BP 117/71
== END 2019-12-23 03:12 ==
LOC: EEVIPCON 00:31 → ER 00:31
DX: L03.116 Cellulitis of left lower limb (principal); Z20.828 Contact with and (suspected) exposure to other viral communicable diseases; R06.02 Shortness of breath; G89.29 Other chronic pain; F12.90 Cannabis use, unspecified, uncomplicated; F15.90 Other stimulant use, unspecified, uncomplicated; F11.90 Opioid use, unspecified, uncomplicated; Z86.19 Personal history of other infectious and parasitic diseases; Z86.718 Personal history of other venous thrombosis and embolism; Z98.890 Other specified postprocedural states; Z79.2 Long term (current) use of antibiotics; Z79.899 Other long term (current) drug therapy
CPT/HCPCS: 36415; 71045; 80053; 83605; 83735; 84145; 85025; 85610; 85730; 87040; 87635; 99284